=== PATIENT | male | born 1980 | race Asian ===

== ENCOUNTER 2019-06-30 01:37 | Emergency (ER) | payer OTHER ==
[~2019-06-30] VITALS: Ht 170.2 cm; Wt 77.3 kg
[2019-06-30 02:41] LABS: ANION GAP 8 mmol/L (8-16); BASOPHILS % (AUTO) 0.6 % (0.0-2.0); CALCIUM, TOTAL 9.3 mg/dL (8.8-10.5); CARBON DIOXIDE 28 mmol/L (22-29); CHLORIDE 102 mmol/L (98-107); CREATININE 0.91 mg/dL (0.60-1.30); EOSINOPHILS % (AUTO) 3.3 % (1.0-6.0); GLOMERULAR FILTR. RATE CALC > 60 mL/min (>60); GLUCOSE,RANDOM 136 mg/dL (70-110); HEMOGLOBIN 14.6 g/dL (13.5-17.5); LYMPHOCYTES # (AUTO) 1.8 K/uL (1.0-4.8); LYMPHOCYTES % (AUTO) 35.8 % (22.0-44.0); MEAN CORPUSCULAR HEMOGLOBIN 31.9 pg (26.0-34.0); MEAN CORPUSCULAR HGB CONC 33.9 G/dL (31.0-37.0); MEAN CORPUSCULAR VOLUME 94 fL (80-100); MONOCYTES # (AUTO) 0.5 K/uL (0.1-1.0); NEUTROPHILS # (AUTO) 2.5 K/uL (1.8-7.7); NEUTROPHILS % (AUTO) 50.3 % (40.0-70.0); PLATELET COUNT (AUTO) 174 K/uL (150-450); RED BLOOD CELL COUNT(AUTO) 4.57 MIL/uL (4.50-5.90); RED CELL DISTRIBUTION WIDTH 11.9 % (11.5-14.5); SODIUM SERUM 138 mmol/L (136-145); UREA NITROGEN, BLOOD 10 mg/dL (7-18)
[2019-06-30 02:46] LABS: ALANINE AMINOTRANSFERASE 65 U/L (12-78); ALKALINE PHOSPHATASE 123 U/L (46-116); ASPARTATE AMINOTRANSFERASE 60 U/L (15-37); BILIRUBIN,TOTAL 0.5 mg/dL (0.1-1.0); LIPASE 215 U/L (73-393); TOTAL PROTEIN, SERUM 8.4 g/dL (6.4-8.2)
[2019-06-30] MEDS ORDERED: IOVERSOL 350 MG/ML 100 ML VIAL ONE (03:15)
[2019-06-30] MEDS ORDERED: SODIUM CHLORIDE 0.9% 100 ML ONE (03:15)
[2019-06-30 03:22] LABS: APPEARANCE,URINE CLEAR (CLEAR); BILIRUBIN,URINE NEGATIVE (NEGATIVE); GLUCOSE, URINE (UA) NEGATIVE (NEGATIVE); KETONES,URINE NEGATIVE (NEGATIVE); NITRATE,URINE NEGATIVE (NEGATIVE); OCCULT BLOOD,URINE NEGATIVE (NEGATIVE); PH,URINE 5.5 (5.0-8.0); PROTEIN,URINE NEGATIVE (NEGATIVE); UROBILINOGEN,URINE 0.2 mg/dL (<=1.0)
[2019-06-30 03:23] LABS: LEUKOCYTE ESTERASE ,URINE NEGATIVE (NEGATIVE)
[2019-06-30 05:12] VITALS: BP 145/80
== END 2019-06-30 05:14 | disposition home or self-care (01) ==
LOC: EMS 01:37
DX: R10.31 Right lower quadrant pain (principal); K63.89 Other specified diseases of intestine; R03.0 Elevated blood-pressure reading, without diagnosis of hypertension
CPT/HCPCS: 36415; 74177; 80053; 81003; 83690; 85025; 99285; J7050; Q9967

== ENCOUNTER 2019-09-16 08:35 | Inpatient (IN) | payer OTHER ==
[~2019-09-16] VITALS: Ht 165.1 cm; Wt 76.2 kg
[2019-09-16] MEDS ORDERED: ChlordiazePOXIDE HCL 25 MG CAPSULE PO ONE (09:00)
[2019-09-16] MEDS ORDERED: LORazepam 2 MG/ML VIAL IVP ONE ×5 (09:00→13:15)
[2019-09-16 09:07] LABS: BASOPHILS % (AUTO) 0.6 % (0.0-2.0); EOSINOPHILS % (AUTO) 0.2 % (1.0-6.0); HEMATOCRIT 50.1 % (41-53); HEMOGLOBIN 17.3 g/dL (13.5-17.5); LYMPHOCYTES # (AUTO) 3.2 K/uL (1.0-4.8); LYMPHOCYTES % (AUTO) 37.6 % (22.0-44.0); MEAN CORPUSCULAR HEMOGLOBIN 32.2 pg (26.0-34.0); MEAN CORPUSCULAR HGB CONC 34.6 G/dL (31.0-37.0); MEAN CORPUSCULAR VOLUME 93 fL (80-100); MONOCYTES # (AUTO) 0.8 K/uL (0.1-1.0); MONOCYTES % (AUTO) 9.1 % (2.0-9.0); NEUTROPHILS # (AUTO) 4.5 K/uL (1.8-7.7); NEUTROPHILS % (AUTO) 52.5 % (40.0-70.0); PLATELET COUNT (AUTO) 148 K/uL (150-450); RED BLOOD CELL COUNT(AUTO) 5.39 MIL/uL (4.50-5.90); RED CELL DISTRIBUTION WIDTH 13.3 % (11.5-14.5)
[2019-09-16 09:41] LABS: ANION GAP 18 mmol/L (8-16); CALCIUM, TOTAL 8.8 mg/dL (8.8-10.5); CARBON DIOXIDE 19 mmol/L (22-29); CHLORIDE 94 mmol/L (98-107); CREATININE 0.82 mg/dL (0.60-1.30); GLOMERULAR FILTR. RATE CALC > 60 mL/min (>60); GLUCOSE,RANDOM 131 mg/dL (70-110); SODIUM SERUM 131 mmol/L (136-145); UREA NITROGEN, BLOOD 14 mg/dL (7-18)
[2019-09-16 09:42] LABS: ALANINE AMINOTRANSFERASE 84 U/L (12-78); ALBUMIN 3.8 g/dL (3.4-5.0); ALKALINE PHOSPHATASE 203 U/L (46-116); ASPARTATE AMINOTRANSFERASE 175 U/L (15-37); BILIRUBIN,TOTAL 1.4 mg/dL (0.1-1.0); TOTAL PROTEIN, SERUM 9.5 g/dL (6.4-8.2)
[2019-09-16 09:48] LABS: B-TYPE NATRIURETIC PEPTIDE < 5 pg/mL (0-100)
[2019-09-16] MEDS ORDERED: MAGNESIUM SULFATE 2 GM, MVI, ADULT NO.1 WITH VIT K 10 ML, THIAMINE 100 MG, FOLIC ACID 1... IV ONE ×10 (10:00→18:00)
[2019-09-16 12:29] LABS: LIPASE 532 U/L (73-393)
[2019-09-16] MEDS ORDERED: DEXMEDETOMIDINE HCL 200 MCG in SODIUM CHLORIDE 0.9% 48 ML IV PRN (13:15)
[2019-09-16] MEDS ORDERED: DEXMEDETOMIDINE HCL 200 MCG/2 ML VIAL IV ONE (13:30)
[2019-09-16] MEDS ORDERED: MORPHINE SULFATE 2 MG/ML SYRINGE IVP PRN (17:15)
[2019-09-16] MEDS ORDERED: MAGNESIUM HYDROXIDE SUSPENSION 30 ML UDCUP PO PRN (17:15)
[2019-09-16] MEDS ORDERED: ONDANSETRON HCL 4 MG/2 ML VIAL IVP PRN (17:15)
[2019-09-16] MEDS ORDERED: ZOLPIDEM TARTRATE 5 MG TABLET PO PRN (17:15)
[2019-09-16] MEDS ORDERED: HYDROCODONE/ACETAMINOPHEN 5-325 MG TABLET PO PRN (17:15)
[2019-09-16] MEDS ORDERED: LORazepam 2 MG/ML VIAL IVP PRN (17:15)
[2019-09-16] MEDS ORDERED: ACETAMINOPHEN 325 MG TABLET PO PRN (17:15)
[2019-09-16] MEDS ORDERED: BISACODYL 10 MG RECTAL RECTAL SUPPOSITORY PR PRN (17:15)
[2019-09-16] MEDS ORDERED: LACTULOSE 200 GM/300 ML RECTAL SOLUTION PR ONE (17:15)
[2019-09-16] MEDS: DOCUSATE SODIUM 100 MG CAPSULE PO SCH (20:32)
[2019-09-16] MEDS: ChlordiazePOXIDE HCL 25 MG CAPSULE PO SCH (21:00)
[2019-09-16] MEDS: HEPARIN SODIUM,PORCINE 5,000 UNITS/ML VIAL SQ SCH (23:54)
[2019-09-17 07:03] LABS: ALBUMIN 3.2 g/dL (3.4-5.0); ALKALINE PHOSPHATASE 171 U/L (46-116); ANION GAP 20 mmol/L (8-16); BILIRUBIN,TOTAL 1.6 mg/dL (0.1-1.0); CALCIUM, TOTAL 8.2 mg/dL (8.8-10.5); CARBON DIOXIDE 19 mmol/L (22-29); CHLORIDE 99 mmol/L (98-107); CREATININE 0.68 mg/dL (0.60-1.30); GLOMERULAR FILTR. RATE CALC > 60 mL/min (>60); GLUCOSE,RANDOM 126 mg/dL (70-110); POTASSIUM 3.6 mmol/L (3.5-5.1); SODIUM SERUM 138 mmol/L (136-145); TOTAL PROTEIN, SERUM 7.9 g/dL (6.4-8.2); UREA NITROGEN, BLOOD 7 mg/dL (7-18)
[2019-09-17 07:26] LABS: ALANINE AMINOTRANSFERASE 56 U/L (12-78); ASPARTATE AMINOTRANSFERASE 103 U/L (15-37)
[2019-09-17] MEDS: ChlordiazePOXIDE HCL 25 MG CAPSULE PO SCH ×4 (08:37→20:16)
[2019-09-17] MEDS: HEPARIN SODIUM,PORCINE 5,000 UNITS/ML VIAL SQ SCH ×2 (08:37→15:22)
[2019-09-17] MEDS: DOCUSATE SODIUM 100 MG CAPSULE PO SCH ×2 (08:37→20:16)
[2019-09-17] MEDS: PANTOPRAZOLE SODIUM 40 MG DR TABLET PO SCH (08:37)
[2019-09-17 11:41] VITALS: BP 149/104
[2019-09-17 11:42] VITALS: BP 155/103
[2019-09-17] MEDS ORDERED: PNEUMOCOCCAL VACCINE POLYVALENT 0.5 ML VIAL [PPSV23] IM ONE (12:45)
[2019-09-17] MEDS ORDERED: SODIUM CHLORIDE 0.9% 1,000 ML IV ONE (16:15)
[2019-09-17] MEDS: AmLODIPine BESYLATE 5 MG TABLET PO SCH (16:38)
[2019-09-17 16:54] VITALS: BP 152/105
[2019-09-17] MEDS ORDERED: KETOROLAC TROMETHAMINE 15 MG/ML VIAL IVP PRN (19:00)
[2019-09-17 19:46] VITALS: BP 122/83
[2019-09-17] MEDS ORDERED: CYCLOBENZAPRINE HCL 10 MG TABLET PO SCH (21:00)
[2019-09-17 23:55] VITALS: BP 138/93
[2019-09-18] MEDS: HEPARIN SODIUM,PORCINE 5,000 UNITS/ML VIAL SQ SCH ×2 (00:25→08:45)
[2019-09-18 04:43] VITALS: BP 132/77
[2019-09-18 08:01] VITALS: BP 150/91
[2019-09-18] MEDS: ChlordiazePOXIDE HCL 25 MG CAPSULE PO SCH ×2 (08:45→12:00)
[2019-09-18] MEDS: AmLODIPine BESYLATE 5 MG TABLET PO SCH (08:45)
[2019-09-18] MEDS: DOCUSATE SODIUM 100 MG CAPSULE PO SCH (08:45)
[2019-09-18] MEDS: PANTOPRAZOLE SODIUM 40 MG DR TABLET PO SCH (08:45)
[2019-09-18 11:01] VITALS: BP 143/99
[2019-09-18] MEDS ORDERED: AMLO10TA7 PO (11:28)
[2019-09-18] MEDS ORDERED: thiamine PO (11:28)
[2019-09-18] MEDS ORDERED: LIB25 PO ×2 (11:28)
[2019-09-18] MEDS ORDERED: librium PO ×2 (11:28)
[2019-09-18] MEDS ORDERED: mvi PO (11:28)
[2019-09-18] MEDS ORDERED: folate PO (11:28)
== END 2019-09-18 13:05 | disposition home or self-care (01) | DRG 70 ==
LOC: EMS 08:36 → 6N 09-17 10:32
PROVIDERS: ADMIT Internal Medicine; ATTEND Internal Medicine
DX: G93.41 Metabolic encephalopathy (principal); K85.90 Acute pancreatitis without necrosis or infection, unspecified; E87.1 Hypo-osmolality and hyponatremia; E46 Unspecified protein-calorie malnutrition; F10.10 Alcohol abuse, uncomplicated; Y90.9 Presence of alcohol in blood, level not specified; D69.6 Thrombocytopenia, unspecified; I10 Essential (primary) hypertension; K70.10 Alcoholic hepatitis without ascites; Z68.28 Body mass index [BMI] 28.0-28.9, adult
CPT/HCPCS: 85379; 93005; 99291; G0378; G0480; J1644; J2060; J3411; J3475; J3490; J7030; J7050

== ENCOUNTER 2023-03-16 21:59 | Emergency (ER) | payer OTHER ==
[~2023-03-16] VITALS: Ht 170.2 cm; Wt 77.3 kg
[~2023-03-16 21:59] MED LIST: AMLO-258 PO; LIB25 PO; folate PO; librium PO; mvi PO; thiamine PO
[2023-03-16 22:04] VITALS: TEMP 98.5
[2023-03-16 23:15] VITALS: BP 124/81; PULSE 71; RESP 17
[2023-03-16 23:32] LABS: APPEARANCE,URINE CLEAR (CLEAR); BILIRUBIN,URINE NEGATIVE (NEGATIVE); COLOR,URINE YELLOW (YELLOW); GLUCOSE, URINE (UA) NEGATIVE (NEGATIVE); LEUKOCYTE ESTERASE ,URINE TRACE (NEGATIVE); NITRATE,URINE NEGATIVE (NEGATIVE); OCCULT BLOOD,URINE NEGATIVE (NEGATIVE); PROTEIN,URINE TRACE mg/dL (NEGATIVE); SPECIFIC GRAVITIY, URINE 1.021 (1.003-1.030); UROBILINOGEN,URINE <=1.0 mg/dL (<=1.0)
[2023-03-16 23:43] LABS: BACTERIA,URINE None Seen /HPF (None Seen); RBC,URINE None Seen /HPF (0-2); SQUAMOUS EPITHELIAL CELL,UR Rare /LPF (None Seen)
== END 2023-03-17 00:05 | disposition home or self-care (01) ==
LOC: EMS 22:00
DX: M79.18 Myalgia, other site (principal); I10 Essential (primary) hypertension; F17.210 Nicotine dependence, cigarettes, uncomplicated; F10.90 Alcohol use, unspecified, uncomplicated
CPT/HCPCS: 81001; 99283